=== PATIENT | male | born 1950 | race Caucasian/White ===

== ENCOUNTER 2018-07-15 16:26 | Emergency (ER) | payer MEDICARE, OTHER ==
[~2018-07-15] VITALS: Ht 180.3 cm; Wt 75.0 kg
[2018-07-15 16:44] VITALS: Ht 180.3 cm; Wt 75.0 kg
[2018-07-15] MEDS ORDERED: HYDROCODONE/APAP (10/325) TAB PO ONE (17:00)
[2018-07-15] MEDS ORDERED: OLANZAPINE (ODT) 5 MG TAB ODT ONE (17:00)
[2018-07-15 18:11] VITALS: BP 137/88; PULSE 79; RESP 18
--- NOTE | 2018-07-15 18:34 | ERD ---
ER Documentation Chief Complaint Chief Complaint right hip pain x 3 years HPI Patient is a 67-year-old male with a history of chronic knee pain who presents with right-sided hip and knee pain. The patient was brought in by ambulance. He has had a hip replacement 8 weeks ago and says that he has had right knee pain for the past 3 years. He said that he ran out of his pain meds yesterday. He was also "kicked out of the facility yesterday". Upon review of old medical records this is the patient's first visit to [facility] but review of the emergency department information exchange system shows visits to 4 separate emergency departments for a total of 9 visits over the past 12 months. He does have a primary doctor but does not remember the name of the orthopedic surgeon. ROS All systems reviewed and are negative except as per history of present illness. Medications Home Meds Unable to Obtain Active Prescriptions or Reported Meds Allergies Allergies: Coded Allergies: No Known Allergy (Unverified , 07/15/18) PMhx/Soc History of Surgery: Yes (rt hip . rt knee ) Anesthesia Reaction: No Hx Neurological Disorder: No Hx Respiratory Disorders: No Hx Cardiac Disorders: No Hx Psychiatric Problems: Yes (anxiety ) Hx Miscellaneous Medical Probl: Yes (chronic knee and hip pain ) Hx Alcohol Use: Yes Hx Substance Use: No Hx Tobacco Use: No Smoking Status: Former smoker FmHx Family History: No diabetes Physical Exam Vitals Vital Signs Date Temp Pulse Resp B/P (MAP) Pulse Ox O2 O2 Flow FiO2 Time Delivery Rate 07/15/18 98.1 66 18 140/83 97 16:44 (102) Physical Exam Const: Anxious Head: Atraumatic Eyes: Normal Conjunctiva ENT: Normal External Ears, Nose and Mouth. Neck: Full range of motion. No meningismus. Resp: Clear to auscultation bilaterally Cardio: Regular rate and rhythm, no murmurs Abd: Soft, non tender, non distended. Normal bowel sounds Skin: No petechiae or rashes Back: No midline or flank tenderness Ext: Knee pain and right hip pain with age of motion but no shortening or deformity noted Neur: Awake and alert Psych: Tearful and anxious Results 24 hrs Current Medications Medications Dose Sig/Fili Start Time Status Last (Trade) Ordered Route PRN Stop Time Admin Dose Reason Admin 1 tab ONCE ONCE 07/15/18 DC 07/15/18 Acetaminophen PO 17:00 07/15/18 16:45 / 17:01 Hydrocodone Bitart (Yantis ()) Olanzapine 5 mg ONCE ONCE 07/15/18 DC 07/15/18 (Zyprexa ODT 17:00 07/15/18 17:01 Zydis) 17:01 Procedures/MDM Patient refused right hip and right knee x-rays. Patient is a 67-year-old male presents with acute on chronic hip and knee pain. The patient was given Yantis for pain. His biggest issue is a social one as he supposedly left AMA from [facility] yesterday. We called the facility and this is what they told us. We are attempting to find placement and have contacted social work. The patient has been offered transportation to a friend's house as well. We will attempt to find a place for him and then will be discharged. Departure Diagnosis: Primary Impression: Chronic pain Chronic pain type: chronic pain syndrome Qualified Codes: G89.4 - Chronic pain syndrome Additional Impression: Hip pain Laterality: right Qualified Codes: M25.551 - Pain in right hip Condition: Fair Patient Instructions: Chronic Pain Referrals: [facility]YCHIATRIC HOSPITAL CLINICS YOU HAVE RECEIVED A MEDICAL SCREENING EXAM AND THE RESULTS INDICATE THAT YOU DO NOT HAVE A CONDITION THAT REQUIRES URGENT TREATMENT IN THE EMERGENCY DEPARTMENT. FURTHER EVALUATION AND TREATMENT OF YOUR CONDITION CAN WAIT UNTIL YOU ARE SEEN IN YOUR DOCTORS OFFICE WITHIN THE NEXT 1-2 DAYS. IT IS YOUR RESPONSIBILITY TO MAKE AN APPOINTMENT FOR FOLOW-UP CARE. IF YOU HAVE A PRIMARY DOCTOR --you should call your primary doctor and schedule an appointment IF YOU DO NOT HAVE A PRIMARY DOCTOR YOU CAN CALL OUR PHYSICIAN REFERRAL HOTLINE AT IF YOU CAN NOT AFFORD TO SEE A PHYSICIAN YOU CAN CHOSE FROM THE FOLLOWING PSYCHIATRIC HOSPITAL CLINICS [facility] [address] [facility]. [facility] [address] [facility]. [facility] [address] [facility] [facility] [address] [facility]. [facility] [address] [facility]. [facility]. [address] Additional Instructions: Call your primary care doctor TOMORROW for an appointment during the next 1 WEEK.Tell the or assistant that you were referred from this facility.See the doctor sooner or return here if your condition worsens before your appointment time. RED REY MD July 15, 2018 18:34
== END 2018-07-16 10:21 | disposition home or self-care (01) ==
LOC: E/R 16:26
DX: M25.551 Pain in right hip (principal); R40.2142 Coma scale, eyes open, spontaneous, at arrival to emergency department; R40.2362 Coma scale, best motor response, obeys commands, at arrival to emergency department; R40.2252 Coma scale, best verbal response, oriented, at arrival to emergency department; Z87.891 Personal history of nicotine dependence; Z96.641 Presence of right artificial hip joint
CPT/HCPCS: 99283

== ENCOUNTER 2018-07-16 10:21 | Inpatient (IN) | payer MEDICARE, OTHER ==
[~2018-07-16] VITALS: Ht 193 cm; Wt 113.6 kg
[2018-07-16 10:46] VITALS: Ht 193 cm; Wt 113.6 kg
--- NOTE | 2018-07-16 12:49 | ERD ---
ER Documentation Chief Complaint Chief Complaint c/o right hip and knee pain. Needs placement. Homeless HPI This is a 67-year-old male who was discharged recently from the hospital after being evaluated for right hip and knee pain. The patient had a right femur ORIF and right total knee arthroplasty performed recently and was in a rehab facility. Unfortunately, the patient had a pet dog that needed to be attended to and he was unable to keep the dog at the facility. He subsequently left AGAINST MEDICAL ADVICE from the facility. He was able to get his friend to watch the dog, and came to the emergency department yesterday for placement. Unfortunately, the patient refused any transfer to a rehab facility that would not allow him to have a dog. The patient was discharged at that time as he did not want to stay. Unfortunately, the patient was not able to leave our facility as he could not ambulate. The patient returns today seeking placement. He is amenable to going to a rehab facility without his dog. The patient continues to endorse right hip and knee pain. This is chronic and unchanged since his surgery. The patient denies feeling sick recently. The patient denies fever or chills. The patient has had no headache or vision changes. The patient does not endorse neck or back pain. The patient denies lightheadedness or dizziness. The patient has had no chest pain or trouble breathing. The patient denies nausea or vomiting. The patient denies abdominal pain. The patient denies changes to bowel movements or urination. The patient has had no focal deficits. The patient has had no weakness or numbness or tingling to the face or extremities. ROS All systems reviewed and are negative except as per history of present illness. Medications Home Meds Unable to Obtain Active Prescriptions or Reported Meds Allergies Allergies: Coded Allergies: No Known Allergy (Unverified , 07/16/18) PMhx/Soc History of Surgery: Yes (rt hip . rt knee ) Anesthesia Reaction: No Hx Neurological Disorder: No Hx Respiratory Disorders: No Hx Cardiac Disorders: No Hx Psychiatric Problems: Yes (anxiety ) Hx Miscellaneous Medical Probl: Yes (chronic knee and hip pain ) Hx Alcohol Use: Yes Hx Substance Use: No Hx Tobacco Use: No Smoking Status: Never smoker FmHx Family History: No diabetes Physical Exam Vitals Vital Signs Date Temp Pulse Resp B/P (MAP) Pulse Ox O2 O2 Flow FiO2 Time Delivery Rate 07/16/18 98.2 71 20 135/92 100 10:46 (106) Physical Exam Const: No acute distress Head: Atraumatic Eyes: Normal Conjunctiva ENT: Normal External Ears, Nose and Mouth. Neck: Full range of motion. No meningismus. Resp: Clear to auscultation bilaterally Cardio: Regular rate and rhythm, no murmurs Abd: Soft, non tender, non distended. Normal bowel sounds Skin: No petechiae or rashes Back: No midline or flank tenderness Ext: No cyanosis, or edema. Limited range of motion to the right hip and knee secondary to pain. No erythema or induration or purulence or fluctuance to the leg. Neur: Awake and alert Psych: Normal Mood and Affect Result Diagram: 07/16/18 1104 07/16/18 1104 Results 24 hrs Laboratory Tests Test 07/16/18 11:04 White Blood Count 5.3 10^3/ul Red Blood Count 4.42 10^6/ul Hemoglobin 12.0 g/dl Hematocrit 36.4 % Mean Corpuscular Volume 82.4 fl Mean Corpuscular Hemoglobin 27.1 pg Mean Corpuscular Hemoglobin Concent 33.0 g/dl Red Cell Distribution Width 14.7 % Platelet Count 191 10^3/UL Mean Platelet Volume 8.9 fl Immature Granulocytes % 0.200 % Neutrophils % 61.4 % Lymphocytes % 22.8 % Monocytes % 12.2 % Eosinophils % 2.8 % Basophils % 0.6 % Nucleated Red Blood Cells % 0.0 /100WBC Immature Granulocytes # 0.010 10^3/ul Neutrophils # 3.3 10^3/ul Lymphocytes # 1.2 10^3/ul Monocytes # 0.7 10^3/ul Eosinophils # 0.2 10^3/ul Basophils # 0.0 10^3/ul Nucleated Red Blood Cells # 0.0 10^3/ul Sodium Level 142 mmol/L Potassium Level 3.8 mmol/L Chloride Level 107 mmol/L Carbon Dioxide Level 24 mmol/L Anion Gap 11 Blood Urea Nitrogen 13 mg/dl Creatinine 0.65 mg/dl Est Glomerular Filtrat Rate mL/min > 60 mL/min Glucose Level 117 mg/dl Calcium Level 9.8 mg/dl Current Medications Medications Dose Sig/Fili Start Time Status Last (Trade) Ordered Route PRN Stop Time Admin Dose Reason Admin 1 tab ONCE ONCE 07/16/18 07/16/18 Acetaminophen PO 15:00 07/16/18 14:37 / 15:01 Hydrocodone Bitart ([place] (5/325)) Procedures/MDM MDM The patient's presentation warrants further investigation. Previous medical records, if available, were reviewed. LABS The patient's laboratory testing was obtained and reviewed. No emergent treat ment was required unless described below. CBC: No E/o systemic infection or severe anemia or thrombocytopenia. Mild normocytic anemia, not emergent. Chemistry: No E/o severe acidosis or alkalosis or renal failure or diabetic ketoacidosis IMAGING Imaging and Radiology interpretation reviewed. CXR FINDINGS: The patient is again noted to be status post placement of a right hip screw, right femoral intramedullary nail, and right knee arthroplasty. No acute fracture or dislocation is identified. Bony mineralization is normal. Atherosclerotic calcifications are noted. IMPRESSION: 1. No evidence of acute fracture or dislocation. 2. Status post right femoral ORIF and right knee arthroplasty. 3. Atherosclerotic calcifications. Electronically viewed and signed by .Trent Olsen MD, on 07/16/2018 11:27 TREATMENT/DISPOSITION The patient presents again for ambulatory dysfunction. The patient had a recent right femoral ORIF and total right knee arthroplasty. He still requires rehabilitation, but he left his rehab center AGAINST MEDICAL ADVICE due to the need to care for his dog. The patient reports that he has found a place for his dog to remain for now while he is in rehab. However, the patient's rehab facility is no longer able to accept him. Social work was consulted to evaluate the patient. They are not able to get the patient to an alternative rehab facility from the emergency department. I do feel the patient requires admission as I do not feel the patient is safe to be discharged on his own at this time. The patient will require PT and OT evaluations and will likely require further rehabilitation care. When speaking with the hospitalist team, they do not feel that it would be appropriate to admit the patient as this is a placement issue. We will have the social research assistant and caser to reevaluate the patient in an attempt to place the patient from the emergency department. The patient was signed out to the oncoming physician at 3 PM on July 16, 2018. Disclaimer: Inadvertent spelling and grammatical errors are likely due to EHR/dictation software use and do not reflect on the overall quality of patient care. Note that the electronic time recorded on this note does not necessarily reflect the actual time of the patient encounter. Departure Diagnosis: Primary Impression: Ambulatory dysfunction Additional Impressions: Status post total right knee replacement Normocytic anemia Condition: Fair Patient Instructions: Anemia, Knee Pain, Uncertain Cause MAT HOLLAND MD July 16, 2018 12:49
[2018-07-16] MEDS ORDERED: HYDROCODONE/APAP (5/325) TAB PO ONE (15:00)
[2018-07-16] MEDS ORDERED: ACETAMINOPHEN 325 MG TAB PO PRN (17:00)
[2018-07-16] MEDS ORDERED: ONDANSETRON 4 MG INJ IV PRN ×2 (17:00→17:30)
[2018-07-16] MEDS ORDERED: NACL 0.9% 3 ML SYG IV SCH (17:30)
--- NOTE | 2018-07-16 17:40 | HP ---
Date/Time of Note Date/Time of Note DATE: 07/16/18 TIME: 17:28 Assessment/Plan VTE Prophylaxis SCD applied (from Ns): Yes Pharmacological prophylaxis: apixaban Assessment/Plan Assessment/Plan 67 yo man history of DVT, chronic R hip and knee pain presents for placement #Homeless - Kicked out of SNF for having dog - SW consult #R hip postoperative pain - Percocet, ibuprofen. - PT evaluation. #R popliteal DVT - Cont eliqius #Depression/Anxiety - Patient on Prozac and Ativan previously. Will try to verify dose. Result Diagram: 07/16/18 1104 07/16/18 1104 HPI/ROS Admit Date/Time Admit Date/Time July 16, 2018 Hx of Present Illness Mr. Nogueira is a 67 yo man with chronic R hip and knee pain related to surgery who presents for placement after losing his SNF. The patient had a right femur ORIF about 7-8 weeks ago and a more remote right total knee arthroplasty and was in a rehab facility. Unfortunately, the patient had a pet dog that needed to be attended to and he was unable to keep the dog at the facility. He subsequently left AGAINST MEDICAL ADVICE from the facility. He was able to get his friend to watch the dog, and came to the emergency department Tuesday for placement. Unfortunately, the patient refused any transfer to a rehab facility that would not allow him to have a dog. The patient continues to endorse right hip and knee pain. This is chronic and unchanged since his surgery. The patient denies feeling sick recently. The patient denies fever or chills. The patient has had no headache or vision changes. The patient does not endorse neck or back pain. The patient denies lightheadedness or dizziness. The patient has had no chest pain or trouble breathing. The patient denies nausea or vomiting. The patient denies abdominal pain. The patient denies changes to bowel movements or urination. The patient has had no focal deficits. The patient has had no weakness or numbness or tingling to the face or extremities. MEDICATIONS Eliquis Ativan Prozac Percocet PMH/Family/Social Past Medical History R popliteal DVT, currently on Eliquis Depression, anxiety Medications Current Medications Ondansetron HCl (Zofran Inj) 4 mg BRIDGE ORDER PRN IV NAUSEA/VOMITING; Start 07/16/18 at 17:00; Stop 07/17/18 at 16:59 Acetaminophen (Tylenol Tab) 650 mg ER BRIDGE PRN PO .MILD PAIN 1-3 OR TEMP; Start 07/16/18 at 17:00; Stop 07/17/18 at 16:59 Coded Allergies: No Known Allergy (Unverified , 07/16/18) Past Surgical History R hip arthroplasty 7-8 weeks ago R knee surgery x3 including arthroplasty. R rotator cuff surgery L elbow surgery Lumbar laminectomy Social History Has two daughters, estranged. Alcohol Use: occasionally Smoking Status: Former smoker (quit 10 years ago) Drug Use: none Exam/Review of Systems Vital Signs Vitals Vital Signs Date Temp Pulse Resp B/P (MAP) Pulse Ox O2 O2 Flow FiO2 Time Delivery Rate 07/16/18 98.2 71 20 135/92 100 10:46 (106) Exam Exam Gen: Melancholy appearing elderly man supine in bed, no acute distress. Eyes: PERRL, no icterus HEENT: Adentulous, moist mucous membranes, clear oropharynx Neck: No JVD, no lymphadenopathy Chest: Early right-sided gynecomastia and breast tenderness. Card: Regular rate and rhythm, no murmurs Pulm: Clear to auscultation bilaterally Back: No CVA tenderness, no midline tenderness, no surgical scars. Abd: Soft, nontender, nondistended. Ext: R hip and knee well-healed surgical scars. R hip has greatly reduced range of motion limited by pain. ZINA SAUL MD July 16, 2018 17:39
[2018-07-16] MEDS: OXYCODONE/ACETAMINOPHEN (5/325) TAB PO PRN (17:44)
[2018-07-16] MEDS ORDERED: IBUPROFEN 800 MG TAB PO ONE (18:00)
[2018-07-16 19:22] VITALS: BP 158/83; PULSE 63; RESP 18
[2018-07-16] MEDS: APIXABAN 5 MG TABLET PO SCH (20:21)
[2018-07-17 02:00] VITALS: BP 110/64; PULSE 67; RESP 16
[2018-07-17 07:39] VITALS: BP 140/80; PULSE 68; RESP 18
[2018-07-17] MEDS: OXYCODONE/ACETAMINOPHEN (5/325) TAB PO PRN ×3 (07:42→20:36)
[2018-07-17] MEDS: APIXABAN 5 MG TABLET PO SCH ×2 (08:37→20:36)
[2018-07-17] MEDS ORDERED: POTASSIUM CHLORIDE (SR) 20 MEQ TAB PO STA (10:51)
[2018-07-17 14:15] VITALS: BP 127/67; PULSE 67; RESP 18
--- NOTE | 2018-07-17 16:02 | PN ---
Date/Time of Note Date/Time of Note DATE: 07/17/18 TIME: 15:57 Assessment/Plan VTE Prophylaxis Risk score (from Ns)>0 risk: 9 SCD applied (from Ns): No SCD contraindicated: other Pharmacological prophylaxis: apixaban Lines/Catheters IV Catheter Type [facility]from [facility]): Saline Lock Urinary Cath still in place: No Assessment/Plan Hospital Course S: Patient had some diarrhea this morning, C. difficile test and results are pending. Work with physical therapy as well. O: VS- see below PE: Gen: Melancholy appearing elderly man supine in bed, no acute distress. HEENT: PERRL, no icterus Neck: Supple Chest: Early right-sided gynecomastia and breast tenderness. Card: Regular rate and rhythm, no murmurs Pulm: Clear to auscultation bilaterally Back: No CVA tenderness, no midline tenderness, no surgical scars. Abd: Soft, nontender, nondistended. Ext: R hip and knee well-healed surgical scars. R hip has greatly reduced range of motion limited by pain. Assessment/Plan: 67 yo man history of DVT, chronic R hip and knee pain presents for placement. #Homeless-apparently patient was kicked out of SNF for having dog -life enrichment manager and SW consult obtained, they are trying to look for new SNF placement at this time -follow-up with them on this #R hip postoperative pain-slowly improving - Percocet, ibuprofen. - Continue inpatient PT #R popliteal DVT - Cont eliqius #Depression/Anxiety- Patient on Prozac and Ativan previously. - Will try to verify dose of these home meds - In the meantime Ativan as needed Result Diagram: 07/17/18 0545 07/17/18 0545 Results 24hrs Laboratory Tests Test 07/17/18 05:45 White Blood Count 5.8 Red Blood Count 4.16 L Hemoglobin 11.3 L Hematocrit 34.8 L Mean Corpuscular Volume 83.7 Mean Corpuscular Hemoglobin 27.2 L Mean Corpuscular Hemoglobin Concent 32.5 Red Cell Distribution Width 14.8 H Platelet Count 175 Mean Platelet Volume 9.3 Immature Granulocytes % 0.300 Neutrophils % 56.7 Lymphocytes % 27.3 Monocytes % 11.9 H Eosinophils % 3.3 Basophils % 0.5 Nucleated Red Blood Cells % 0.0 Immature Granulocytes # 0.020 Neutrophils # 3.3 Lymphocytes # 1.6 Monocytes # 0.7 Eosinophils # 0.2 Basophils # 0.0 Nucleated Red Blood Cells # 0.0 Sodium Level 143 Potassium Level 3.4 L Chloride Level 105 Carbon Dioxide Level 26 Anion Gap 12 Blood Urea Nitrogen 16 Creatinine 0.75 Est Glomerular Filtrat Rate mL/min > 60 Glucose Level 107 Hemoglobin A1c 5.3 Calcium Level 9.3 Phosphorus Level 4.1 Magnesium Level 1.9 Total Bilirubin 0.5 Direct Bilirubin 0.00 Indirect Bilirubin 0.5 Aspartate Amino Transf (AST/SGOT) 20 Alanine Aminotransferase (ALT/SGPT) 23 Alkaline Phosphatase 96 Total Protein 6.7 Albumin 3.8 Globulin 2.90 Albumin/Globulin Ratio 1.31 Thyroid Stimulating Hormone (TSH) 2.150 Exam/Review of Systems Exam Vitals Vital Signs Date Temp Pulse Resp B/P (MAP) Pulse Ox O2 O2 Flow FiO2 Time Delivery Rate 07/17/18 98.2 67 18 127/67 98 Room Air 14:15 (87) Results Results 24hrs Laboratory Tests Test 07/17/18 05:45 White Blood Count 5.8 Red Blood Count 4.16 L Hemoglobin 11.3 L Hematocrit 34.8 L Mean Corpuscular Volume 83.7 Mean Corpuscular Hemoglobin 27.2 L Mean Corpuscular Hemoglobin Concent 32.5 Red Cell Distribution Width 14.8 H Platelet Count 175 Mean Platelet Volume 9.3 Immature Granulocytes % 0.300 Neutrophils % 56.7 Lymphocytes % 27.3 Monocytes % 11.9 H Eosinophils % 3.3 Basophils % 0.5 Nucleated Red Blood Cells % 0.0 Immature Granulocytes # 0.020 Neutrophils # 3.3 Lymphocytes # 1.6 Monocytes # 0.7 Eosinophils # 0.2 Basophils # 0.0 Nucleated Red Blood Cells # 0.0 Sodium Level 143 Potassium Level 3.4 L Chloride Level 105 Carbon Dioxide Level 26 Anion Gap 12 Blood Urea Nitrogen 16 Creatinine 0.75 Est Glomerular Filtrat Rate mL/min > 60 Glucose Level 107 Hemoglobin A1c 5.3 Calcium Level 9.3 Phosphorus Level 4.1 Magnesium Level 1.9 Total Bilirubin 0.5 Direct Bilirubin 0.00 Indirect Bilirubin 0.5 Aspartate Amino Transf (AST/SGOT) 20 Alanine Aminotransferase (ALT/SGPT) 23 Alkaline Phosphatase 96 Total Protein 6.7 Albumin 3.8 Globulin 2.90 Albumin/Globulin Ratio 1.31 Thyroid Stimulating Hormone (TSH) 2.150 Medications Medication Current Medications Ondansetron HCl (Zofran Inj) 4 mg BRIDGE ORDER PRN IV NAUSEA/VOMITING; Start 07/16/18 at 17:00; Stop 07/17/18 at 16:59 Acetaminophen (Tylenol Tab) 650 mg ER BRIDGE PRN PO .MILD PAIN 1-3 OR TEMP; Start 07/16/18 at 17:00; Stop 07/17/18 at 16:59 IV Flush (NS 3 ml) 3 ml PER PROTOCOL IV ; Start 07/16/18 at 17:30 Ondansetron HCl (Zofran Inj) 4 mg Q6H PRN IV NAUSEA/VOMITING; Start 07/16/18 at 17:30 Acetaminophen (Tylenol Tab) 650 mg Q6H PRN PO .PAIN 1-3 OR TEMP; Start 07/16/18 at 17:30 Oxycodone/ Acetaminophen (Percocet (5/ 325)) 1 tab Q6H PRN PO .MOD PAIN 4-6 Last administered on 07/17/18at 13:48; Admin Dose 1 TAB; Start 07/16/18 at 17:30 Apixaban (Eliquis) 5 mg BID PO Last administered on 07/17/18at 08:37; Admin Dose 5 MG; Start 07/16/18 at 21:00 HANS COTA July 17, 2018 16:02
[2018-07-17] MEDS: LORAZEPAM 2 MG INJ IV PRN (17:54)
[2018-07-17 19:25] VITALS: BP 142/80; PULSE 57; RESP 18
[2018-07-18] MEDS: LORAZEPAM 2 MG INJ IV PRN ×2 (00:18→07:35)
[2018-07-18 02:48] VITALS: BP 138/66; PULSE 60; RESP 18
[2018-07-18 07:48] VITALS: BP 138/70; PULSE 58; RESP 17
[2018-07-18] MEDS: APIXABAN 5 MG TABLET PO SCH ×2 (09:13→20:28)
--- NOTE | 2018-07-18 11:22 | PDOCDIS ---
Discharge Instructions CONDITION [id number] Patient Condition: [id number] Stable HANS COTA July 18, 2018 11:22
--- NOTE | 2018-07-18 11:26 | DS ---
Date/Time of Note Date/Time of Note DATE: 07/18/18 TIME: 11:23 Discharge Summary Admission/Discharge Info Admit Date/Time July 16, 2018 at 16:50 Discharge Date/Time Discharge Diagnosis #Homeless-apparently patient was kicked out of prior SNF for having dog -Case m igor and long term care social worker discussed this issue with patient on this admission #R hip postoperative pain-slowly improving #R popliteal DVT - on eliqius #Depression/Anxiety- Patient on Prozac and Ativan previously. Patient Condition: Stable Procedures Right hip x-ray: IMPRESSION: 1. No evidence of acute fracture or dislocation. 2. Status post right femoral ORIF and right knee arthroplasty. 3. Atherosclerotic calcifications. Hx of Present Illness 67 yo man with chronic R hip and knee pain related to surgery who presents for placement after losing his SNF. The patient had a right femur ORIF about 7-8 weeks ago and a more remote right total knee arthroplasty and was in a rehab facility. Unfortunately, the patient had a pet dog that needed to be attended to and he was unable to keep the dog at the facility. He subsequently left AGAINST MEDICAL ADVICE from the facility. He was able to get his friend to watch the dog, and came to the emergency department Tuesday for placement. Unfortunately, the patient refused any transfer to a rehab facility that would not allow him to have a dog. The patient continues to endorse right hip and knee pain. This is chronic and unchanged since his surgery. The patient denies feeling sick recently. The patient denies fever or chills. The patient has had no headache or vision changes. The patient does not endorse neck or back pain. The patient denies lightheadedness or dizziness. The patient has had no chest pain or trouble breathing. The patient denies nausea or vomiting. The patient denies abdominal pain. The patient denies changes to bowel movements or urination. The patient has had no focal deficits. The patient has had no weakness or numbness or tingling to the face or extremities. Hospital Course Patient was admitted to medical surgical unit and seen by physical therapy during this hospital stay. He received appropriate pain medications to help control his hip pain. X-rays were performed of his hip that did not show any acute findings. Patient improved with physical therapy. Vital signs are stable. He was able to ambulate with assistance, tolerated p.o. diet. He continued Eliquis for his history of DVT. Case management appears to have found a place, new SNF facility for placement today, once that is confirmed he will be discharged there later today in improved condition. See printed medicine reconciliation sheet for full list of discharge medications. Home Meds Unable to Obtain Active Prescriptions or Reported Meds Primary Care Provider Not On Staff Doctor Time spent on discharge: > 30 minutes HANS COTA July 18, 2018 11:26
[2018-07-18] MEDS: LORAZEPAM 1 MG TAB PO PRN ×2 (12:59→19:04)
[2018-07-18] MEDS: OXYCODONE/ACETAMINOPHEN (5/325) TAB PO PRN ×2 (12:59→19:04)
[2018-07-18 14:07] VITALS: BP 121/75; PULSE 69; RESP 18
[2018-07-18 19:15] VITALS: BP 121/71; PULSE 67; RESP 19
[2018-07-18] MEDS ORDERED: LORAZEPAM 2 MG INJ IV ONE (20:30)
[2018-07-18] MEDS ORDERED: HALOPERIDOL 5 MG INJ IM ONE (20:30)
[2018-07-18] MEDS ORDERED: ASPIRIN 325 MG TAB PO ONE (22:00)
[2018-07-19] MEDS: OXYCODONE/ACETAMINOPHEN (5/325) TAB PO PRN ×3 (01:31→12:59)
[2018-07-19] MEDS: LORAZEPAM 1 MG TAB PO PRN ×4 (01:48→18:13)
[2018-07-19 02:00] VITALS: BP 134/67; PULSE 55; RESP 20
[2018-07-19 08:00] VITALS: BP 147/72; PULSE 58; RESP 18
[2018-07-19] MEDS: APIXABAN 5 MG TABLET PO SCH ×2 (08:51→21:02)
--- NOTE | 2018-07-19 10:19 | DS ---
Date/Time of Note Date/Time of Note DATE: 07/19/18 TIME: 10:18 Discharge Summary Admission/Discharge Info Admit Date/Time July 16, 2018 at 16:50 Discharge Date/Time Discharge Diagnosis #Homeless-apparently patient was kicked out of prior SNF for having dog -Case m igor and addiction social worker discussed this issue with patient on this admission #R hip postoperative pain-slowly improving #R popliteal DVT - on eliqius #Depression/Anxiety- Patient on Prozac and Ativan previously. Patient Condition: Stable Hx of Present Illness 67 yo man with chronic R hip and knee pain related to surgery who presents for placement after losing his SNF. The patient had a right femur ORIF about 7-8 weeks ago and a more remote right total knee arthroplasty and was in a rehab facility. Unfortunately, the patient had a pet dog that needed to be attended to and he was unable to keep the dog at the facility. He subsequently left AGAINST MEDICAL ADVICE from the facility. He was able to get his friend to watch the dog, and came to the emergency department Tuesday for placement. Unfortunately, the patient refused any transfer to a rehab facility that would not allow him to have a dog. The patient continues to endorse right hip and knee pain. This is chronic and unchanged since his surgery. The patient denies feeling sick recently. The patient denies fever or chills. The patient has had no headache or vision changes. The patient does not endorse neck or back pain. The patient denies lightheadedness or dizziness. The patient has had no chest pain or trouble breathing. The patient denies nausea or vomiting. The patient denies abdominal pain. The patient denies changes to bowel movements or urination. The patient has had no focal deficits. The patient has had no weakness or numbness or tingling to the face or extremities. Hospital Course Patient was admitted to medical surgical unit and seen by physical therapy during this hospital stay. He received appropriate pain medications to help control his hip pain. X-rays were performed of his hip that did not show any acute findings. Patient improved with physical therapy. Vital signs are stable. He was able to ambulate with assistance, tolerated p.o. diet. He continued Eliquis for his history of DVT. Case management working on SNF facility for placement today, once that is confirmed he will be discharged there later today in improved condition. See printed medicine reconciliation sheet for full list of discharge medications. Home Meds Unable to Obtain Active Prescriptions or Reported Meds Primary Care Provider Not On Staff Doctor Time spent on discharge: > 30 minutes HANS COTA July 19, 2018 10:19
[2018-07-19 14:00] VITALS: BP 92/62; PULSE 71; RESP 18
--- NOTE | 2018-07-19 15:42 | PSY ---
Date/Time of Note Date/Time of Note DATE: 07/19/18 TIME: 15:35 Psychiatric Subjective Eval Consent Pt consented to telemedicine: No Subjective Evaluation Patient location: inpatient Chief Complaint: c/o right hip and knee pain. Needs placement. Homeless History of present illness The patient is a 67 yr old male with history of DVT, chronic R hip, admitted for knee pain. On a [id number] evaluation, patient is increasingly anxious reports feeling hopeless and depressed, patient is tearful states he still has memories of the of his baby from his first . He states he stopped his Prozac a few months ago because he could no longer afford it and there was no prescription for him. Discussed risk and benefits of Prozac BuSpar and patient verbalized understanding and willing to take those medications Past psychiatric history Long history of depression and anxiety Hospitalization: other Medical history Problems Medical Problems: (1) Ambulatory dysfunction Status: Acute (2) Chronic pain Status: Acute (3) Hip pain Status: Acute (4) Normocytic anemia Status: Acute Allergies: Coded Allergies: No Known Allergy (Unverified , 07/16/18) Substance Abuse Substance abuse history: No Prior substance abuse treatmen: No Social History Marital status: DPA/Conservatorship: No Psychiatric Objective Eval Review of Systems: Review of Systems: Not Applicable Physical Examination: Physical Examination: Not Applicable Mental Status Examination: Appearance: Disheveled Eye Contact: Poor Psychomotor Activity: Slow Behavior: Cooperative Speech: Soft AFFECT: Flat Mood: Depressed, Anxious Though Process: Linear Thought Content: Normal Orientation: x4 Cognition: Alert Insight: Mild Judgement: Mild Attention Span: Distractible Assessment and Plan Assessment/Diagnosis Diagnosis Major depressive disorder severe recurrent without psychosis Recommendation/Plan Medication Management Prozac 20 mg daily, BuSpar 5 mg twice a day, and continue on Ativan as ordered Multiple antipsychotics: No Psychotherapy Provide supportive therapy Discharge Disposition: Other Legal Status: Voluntary (Does not meet criteria for 5150 hold) ANDREINA SUNSHINE NP July 19, 2018 15:42
[2018-07-19 19:45] VITALS: BP 135/70; PULSE 70; RESP 19
[2018-07-19] MEDS: BUSPIRONE 5 MG TAB PO SCH (21:02)
[2018-07-20] MEDS: LORAZEPAM 1 MG TAB PO PRN ×4 (00:16→18:55)
[2018-07-20] MEDS: OXYCODONE/ACETAMINOPHEN (5/325) TAB PO PRN ×4 (00:16→18:55)
[2018-07-20 02:16] VITALS: BP 129/76; PULSE 72; RESP 20
[2018-07-20 07:33] VITALS: BP 126/65; PULSE 58; RESP 18
[2018-07-20] MEDS: FLUOXETINE 20 MG CAP PO SCH (08:08)
[2018-07-20] MEDS: BUSPIRONE 5 MG TAB PO SCH ×2 (08:08→20:05)
[2018-07-20] MEDS: APIXABAN 5 MG TABLET PO SCH ×2 (08:08→20:05)
--- NOTE | 2018-07-20 10:07 | PN ---
Date/Time of Note Date/Time of Note DATE: 07/20/18 TIME: 10:05 Assessment/Plan VTE Prophylaxis Risk score (from Nsg)>0 risk: 11 SCD applied (from Ns): No SCD contraindicated: other Pharmacological prophylaxis: apixaban Lines/Catheters IV Catheter Type (from Nrsg): Peripheral IV Urinary Cath still in place: No Assessment/Plan Hospital Course S: Patient still waiting for placement, no acute events overnight. O: VS- see below PE: Gen: Melancholy appearing elderly man supine in bed, no acute distress. HEENT: PERRL, no icterus Neck: Supple Chest: Early right-sided gynecomastia and breast tenderness. Card: Regular rate and rhythm, no murmurs Pulm: Clear to auscultation bilaterally Back: No CVA tenderness, no midline tenderness, no surgical scars. Abd: Soft, nontender, nondistended. Ext: R hip and knee well-healed surgical scars. R hip has greatly reduced range of motion limited by pain. Assessment/Plan: 67 yo man history of DVT, chronic R hip and knee pain presents for placement. #Homeless-apparently patient was kicked out of SNF for having dog -activity manager and SW consult obtained, they are trying to look for new SNF placement at this time -follow-up with them on this #R hip postoperative pain-slowly improving - Percocet, ibuprofen. - Continue inpatient PT #R popliteal DVT - Cont eliqius #Depression/Anxiety- Patient on Prozac and Ativan previously. - In the meantime Ativan as needed Dispo: to SNF when bed found, cleared for d/c there Result Diagram: 07/17/18 0545 07/17/18 0545 Exam/Review of Systems Exam Vitals Vital Signs Date Temp Pulse Resp B/P (MAP) Pulse Ox O2 O2 Flow FiO2 Time Delivery Rate 07/20/18 98.2 58 18 126/65 91 Room Air 07:33 (85) Intake and Output 07/19/18 07/19/18 07/20/18 1515:00 23:00 07:00 IntakeIntake Total 440 ml OutputOutput Total 900 ml 500 ml 400 ml BalanceBalance -460 ml -500 ml -400 ml Medications Medication Current Medications IV Flush (NS 3 ml) 3 ml PER PROTOCOL IV ; Start 07/16/18 at 17:30 Ondansetron HCl (Zofran Inj) 4 mg Q6H PRN IV NAUSEA/VOMITING; Start 07/16/18 at 17:30 Acetaminophen (Tylenol Tab) 650 mg Q6H PRN PO .PAIN 1-3 OR TEMP; Start 07/16/18 at 17:30 Oxycodone/ Acetaminophen (Percocet (5/ 325)) 1 tab Q6H PRN PO .MOD PAIN 4-6 Last administered on 07/20/18 06:49; Admin Dose 1 TAB; Start 07/16/18 at 17:30 Apixaban (Eliquis) 5 mg BID PO Last administered on 07/20/18 08:08; Admin Dose 5 MG; Start 07/16/18 at 21:00 Lorazepam (Ativan) 1 mg Q6H PRN IV AGITATION/ANXIETY Last administered on 07/18/18 07:35; Admin Dose 1 MG; Start 07/17/18 at 16:00 Lorazepam (Ativan) 1 mg Q6H PRN PO ANXIETY Last administered on 07/20/18 06:49; Admin Dose 1 MG; Start 07/18/18 at 12:30 Buspirone HCl (Buspar) 5 mg BID PO Last administered on 07/20/18 08:08; Admin Dose 5 MG; Start 07/19/18 at 21:00 Fluoxetine HCl (Prozac) 20 mg DAILY PO Last administered on 07/20/18 08:08; Admin Dose 20 MG; Start 07/20/18 at 09:00 HANS COTA July 20, 2018 10:07
[2018-07-20 13:33] VITALS: BP 131/83; PULSE 67; RESP 16
[2018-07-20 20:07] VITALS: BP 120/79; PULSE 63; RESP 18
[2018-07-21] MEDS: OXYCODONE/ACETAMINOPHEN (5/325) TAB PO PRN ×4 (00:58→19:14)
[2018-07-21] MEDS: LORAZEPAM 1 MG TAB PO PRN ×4 (00:58→20:05)
[2018-07-21 01:53] VITALS: BP 134/66; PULSE 66; RESP 18
[2018-07-21 08:00] VITALS: BP 105/72; PULSE 59; RESP 18
[2018-07-21] MEDS: FLUOXETINE 20 MG CAP PO SCH (09:04)
[2018-07-21] MEDS: BUSPIRONE 5 MG TAB PO SCH ×2 (09:04→20:05)
[2018-07-21] MEDS: APIXABAN 5 MG TABLET PO SCH ×2 (09:04→20:05)
--- NOTE | 2018-07-21 13:58 | PN ---
Date/Time of Note Date/Time of Note DATE: 07/21/18 TIME: 13:57 Assessment/Plan VTE Prophylaxis Risk score (from Nsg)>0 risk: 2 SCD applied (from Nsg): No SCD contraindicated: other Pharmacological prophylaxis: apixaban Lines/Catheters IV Catheter Type (from Nrsg): Peripheral IV Urinary Cath still in place: No Assessment/Plan Hospital Course S: Patient still waiting for placement, no acute events overnight. Seen by psychiatry team and presently on Prozac and BuSpar tolerating well. O: VS- see below PE: Gen: Melancholy appearing elderly man supine in bed, no acute distress. HEENT: PERRL, no icterus Neck: Supple Chest: Early right-sided gynecomastia and breast tenderness. Card: Regular rate and rhythm, no murmurs Pulm: Clear to auscultation bilaterally Back: No CVA tenderness, no midline tenderness, no surgical scars. Abd: Soft, nontender, nondistended. Ext: R hip and knee well-healed surgical scars. R hip has greatly reduced range of motion limited by pain. Assessment/Plan: 67 yo man history of DVT, chronic R hip and knee pain presents for placement. #Homeless-apparently patient was kicked out of SNF for having dog -manager shell and SW consult obtained, they are trying to look for new SNF placement at this time -follow-up with them on this #R hip postoperative pain-slowly improving - Percocet, ibuprofen. - Continue inpatient PT #R popliteal DVT - Cont eliqius #Depression/Anxiety- Patient on Prozac and Ativan previously. Appreciate psychiatry evaluation. -Continue BuSpar and Prozac medications. Also Ativan as needed. Dispo: to SNF when bed found, cleared for d/c there Result Diagram: 07/17/18 0545 07/17/18 0545 Exam/Review of Systems Exam Vitals Vital Signs Date Temp Pulse Resp B/P (MAP) Pulse Ox O2 O2 Flow FiO2 Time Delivery Rate 07/21/18 98.1 59 18 105/72 93 08:00 (83) 07/20/18 Room Air 13:33 Intake and Output 07/20/18 07/20/18 07/21/18 1515:00 23:00 07:00 IntakeIntake Total 1020 ml OutputOutput Total 1100 ml 525 ml BalanceBalance -80 ml -525 ml Medications Medication Current Medications IV Flush (NS 3 ml) 3 ml PER PROTOCOL IV ; Start 07/16/18 at 17:30 Ondansetron HCl (Zofran Inj) 4 mg Q6H PRN IV NAUSEA/VOMITING; Start 07/16/18 at 17:30 Acetaminophen (Tylenol Tab) 650 mg Q6H PRN PO .PAIN 1-3 OR TEMP; Start 07/16/18 at 17:30 Oxycodone/ Acetaminophen (Percocet (5/ 325)) 1 tab Q6H PRN PO .MOD PAIN 4-6 Last administered on 07/21/18 13:12; Admin Dose 1 TAB; Start 07/16/18 at 17:30 Apixaban (Eliquis) 5 mg BID PO Last administered on 07/21/18 09:04; Admin Dose 5 MG; Start 07/16/18 at 21:00 Lorazepam (Ativan) 1 mg Q6H PRN IV AGITATION/ANXIETY Last administered on 07/18/18at 07:35; Admin Dose 1 MG; Start 07/17/18 at 16:00 Lorazepam (Ativan) 1 mg Q6H PRN PO ANXIETY Last administered on 07/21/18 06:08; Admin Dose 1 MG; Start 07/18/18 at 12:30 Buspirone HCl (Buspar) 5 mg BID PO Last administered on 07/21/18 09:04; Admin Dose 5 MG; Start 07/19/18 at 21:00 Fluoxetine HCl (Prozac) 20 mg DAILY PO Last administered on 07/21/18 09:04; Admin Dose 20 MG; Start 07/20/18 at 09:00 HANS COTA July 21, 2018 13:58
[2018-07-21 14:00] VITALS: BP 121/71; PULSE 77; RESP 18
[2018-07-21 19:44] VITALS: BP 147/86; PULSE 78; RESP 18
[2018-07-22] MEDS: OXYCODONE/ACETAMINOPHEN (5/325) TAB PO PRN ×4 (01:09→22:21)
[2018-07-22 01:42] VITALS: BP 130/84; PULSE 63; RESP 19
[2018-07-22] MEDS: LORAZEPAM 1 MG TAB PO PRN ×4 (02:05→21:10)
[2018-07-22 07:24] VITALS: BP 105/51; PULSE 58; RESP 18
[2018-07-22] MEDS: FLUOXETINE 20 MG CAP PO SCH (08:36)
[2018-07-22] MEDS: BUSPIRONE 5 MG TAB PO SCH ×2 (08:36→21:10)
[2018-07-22] MEDS: APIXABAN 5 MG TABLET PO SCH ×2 (08:36→21:10)
--- NOTE | 2018-07-22 11:38 | PN ---
Date/Time of Note Date/Time of Note DATE: 07/22/18 TIME: 11:38 Assessment/Plan VTE Prophylaxis Risk score (from Nsg)>0 risk: 6 SCD applied (from Ns): No SCD contraindicated: other Pharmacological prophylaxis: apixaban Lines/Catheters IV Catheter Type (from Nrsg): Saline Lock Urinary Cath still in place: No Assessment/Plan Hospital Course S: Patient still waiting for placement, no acute events overnight. O: VS- see below PE: Gen: Melancholy appearing elderly man supine in bed, no acute distress. HEENT: PERRL, no icterus Neck: Supple Chest: Early right-sided gynecomastia and breast tenderness. Card: Regular rate and rhythm, no murmurs Pulm: Clear to auscultation bilaterally Back: No CVA tenderness, no midline tenderness, no surgical scars. Abd: Soft, nontender, nondistended. Ext: R hip and knee well-healed surgical scars. R hip has greatly reduced range of motion limited by pain. Assessment/Plan: 67 yo man history of DVT, chronic R hip and knee pain presents for placement. #Homeless-apparently patient was kicked out of SNF for having dog -manager market research and SW consult obtained, they are trying to look for new SNF placement at this time -follow-up with them on this #R hip postoperative pain-slowly improving - Percocet, ibuprofen. - Continue inpatient PT #R popliteal DVT - Cont eliqius #Depression/Anxiety- Patient on Prozac and Ativan previously. Appreciate psychiatry evaluation. -Continue BuSpar and Prozac medications. Also Ativan as needed. Dispo: to SNF when bed found, cleared for d/c there Exam/Review of Systems Exam Vitals Vital Signs Date Temp Pulse Resp B/P (MAP) Pulse Ox O2 O2 Flow FiO2 Time Delivery Rate 07/22/18 98.0 58 18 105/51 92 Room Air 07:24 (69) Intake and Output 07/21/18 07/21/18 07/22/18 1515:00 23:00 07:00 IntakeIntake Total 720 ml 480 ml OutputOutput Total 600 ml 600 ml 700 ml BalanceBalance 120 ml -120 ml -700 ml Medications Medication Current Medications IV Flush (NS 3 ml) 3 ml PER PROTOCOL IV ; Start 07/16/18 at 17:30 Ondansetron HCl (Zofran Inj) 4 mg Q6H PRN IV NAUSEA/VOMITING; Start 07/16/18 at 17:30 Acetaminophen (Tylenol Tab) 650 mg Q6H PRN PO .PAIN 1-3 OR TEMP; Start 07/16/18 at 17:30 Oxycodone/ Acetaminophen (Percocet (5/ 325)) 1 tab Q6H PRN PO .MOD PAIN 4-6 Last administered on 07/22/18 07:13; Admin Dose 1 TAB; Start 07/16/18 at 17:30 Apixaban (Eliquis) 5 mg BID PO Last administered on 07/22/18 08:36; Admin Dose 5 MG; Start 07/16/18 at 21:00 Lorazepam (Ativan) 1 mg Q6H PRN IV AGITATION/ANXIETY Last administered on 07/18/18 07:35; Admin Dose 1 MG; Start 07/17/18 at 16:00 Lorazepam (Ativan) 1 mg Q6H PRN PO ANXIETY Last administered on 07/22/18 08:36; Admin Dose 1 MG; Start 07/18/18 at 12:30 Buspirone HCl (Buspar) 5 mg BID PO Last administered on 07/22/18 08:36; Admin Dose 5 MG; Start 07/19/18 at 21:00 Fluoxetine HCl (Prozac) 20 mg DAILY PO Last administered on 07/22/18 08:36; Admin Dose 20 MG; Start 07/20/18 at 09:00 HANS COTA July 22, 2018 11:38
[2018-07-22 14:00] VITALS: BP 112/73; PULSE 65; RESP 18
[2018-07-22 19:57] VITALS: BP 137/65; PULSE 64; RESP 18
[2018-07-23 02:17] VITALS: BP 121/71; PULSE 80; RESP 18
[2018-07-23] MEDS: LORAZEPAM 1 MG TAB PO PRN (04:33)
[2018-07-23 07:18] VITALS: BP 126/60; PULSE 64; RESP 18
[2018-07-23] MEDS: APIXABAN 5 MG TABLET PO SCH ×2 (08:36→21:11)
[2018-07-23] MEDS: FLUOXETINE 20 MG CAP PO SCH (08:36)
[2018-07-23] MEDS: BUSPIRONE 5 MG TAB PO SCH ×2 (08:36→21:11)
[2018-07-23] MEDS: OXYCODONE/ACETAMINOPHEN (5/325) TAB PO PRN ×3 (08:36→22:00)
--- NOTE | 2018-07-23 12:53 | PN ---
Date/Time of Note Date/Time of Note DATE: 07/23/18 TIME: 12:52 Assessment/Plan VTE Prophylaxis Risk score (from Nsg)>0 risk: 6 SCD applied (from Nsg): No SCD contraindicated: other Pharmacological prophylaxis: apixaban Lines/Catheters IV Catheter Type (from Nrsg): Saline Lock Urinary Cath still in place: No Assessment/Plan Hospital Course S: Patient worked with PT yesterday. No acute events overnight. Still waiting for placement. O: VS- see below PE: Gen: Lying in bed eating cookies, no acute distress. HEENT: PERRL, no icterus Neck: Supple Chest: Early right-sided gynecomastia and breast tenderness. Card: Regular rate and rhythm, no murmurs Pulm: Clear to auscultation bilaterally Back: No CVA tenderness, no midline tenderness, no surgical scars. Abd: Soft, nontender, nondistended. Ext: R hip and knee well-healed surgical scars. R hip has greatly reduced range of motion limited by pain. Assessment/Plan: 67 yo man history of DVT, chronic R hip and knee pain presents for placement. #Homeless-apparently patient was kicked out of SNF for having dog -visual merchandise manager and SW consult obtained, they are trying to look for new SNF placement at this time -follow-up with them on this #R hip postoperative pain-slowly improving - Percocet, ibuprofen. - Continue inpatient PT #R popliteal DVT - Cont eliqius #Depression/Anxiety- Patient on Prozac and Ativan previously. Appreciate psychi atry evaluation. -Continue BuSpar and Prozac medications. Also Ativan as needed. Dispo: to SNF when bed found, cleared for d/c there Exam/Review of Systems Exam Vitals Vital Signs Date Temp Pulse Resp B/P (MAP) Pulse Ox O2 O2 Flow FiO2 Time Delivery Rate 07/23/18 98.0 64 18 126/60 93 Room Air 07:18 (82) Intake and Output 07/22/18 07/22/18 07/23/18 1515:00 23:00 07:00 IntakeIntake Total 440 ml 380 ml OutputOutput Total 300 ml 700 ml BalanceBalance 140 ml -320 ml Medications Medication Current Medications IV Flush (NS 3 ml) 3 ml PER PROTOCOL IV ; Start 07/16/18 at 17:30 Ondansetron HCl (Zofran Inj) 4 mg Q6H PRN IV NAUSEA/VOMITING; Start 07/16/18 at 17:30 Acetaminophen (Tylenol Tab) 650 mg Q6H PRN PO .PAIN 1-3 OR TEMP; Start 07/16/18 at 17:30 Oxycodone/ Acetaminophen (Percocet (5/ 325)) 1 tab Q6H PRN PO .MOD PAIN 4-6 Last administered on 07/23/18 08:36; Admin Dose 1 TAB; Start 07/16/18 at 17:30 Apixaban (Eliquis) 5 mg BID PO Last administered on 07/23/18 08:36; Admin Dose 5 MG; Start 07/16/18 at 21:00 Lorazepam (Ativan) 1 mg Q6H PRN IV AGITATION/ANXIETY Last administered on 07/18/18 07:35; Admin Dose 1 MG; Start 07/17/18 at 16:00 Lorazepam (Ativan) 1 mg Q6H PRN PO ANXIETY Last administered on 07/23/18 04:33; Admin Dose 1 MG; Start 07/18/18 at 12:30 Buspirone HCl (Buspar) 5 mg BID PO Last administered on 07/23/18 08:36; Admin Dose 5 MG; Start 07/19/18 at 21:00 Fluoxetine HCl (Prozac) 20 mg DAILY PO Last administered on 07/23/18 08:36; Admin Dose 20 MG; Start 07/20/18 at 09:00 HANS COTA July 23, 2018 12:53
[2018-07-23 14:00] VITALS: BP 112/70; PULSE 62; RESP 15
[2018-07-23] MEDS: LORAZEPAM 2 MG INJ IV PRN ×2 (14:31→21:11)
[2018-07-23 20:23] VITALS: BP 113/63; PULSE 76; RESP 18
[2018-07-24 02:03] VITALS: BP 122/72; PULSE 68; RESP 18
[2018-07-24] MEDS: OXYCODONE/ACETAMINOPHEN (5/325) TAB PO PRN ×2 (04:18→11:00)
[2018-07-24] MEDS: LORAZEPAM 1 MG TAB PO PRN ×4 (04:18→23:05)
[2018-07-24 08:00] VITALS: BP 112/59; PULSE 59; RESP 18
[2018-07-24] MEDS: BUSPIRONE 5 MG TAB PO SCH ×2 (09:34→21:26)
[2018-07-24] MEDS: APIXABAN 5 MG TABLET PO SCH ×2 (09:34→21:27)
[2018-07-24] MEDS: FLUOXETINE 20 MG CAP PO SCH (09:34)
[2018-07-24 14:00] VITALS: BP 116/63; PULSE 64; RESP 18
--- NOTE | 2018-07-24 15:23 | PN ---
Date/Time of Note Date/Time of Note DATE: 07/24/18 TIME: 15:20 Assessment/Plan VTE Prophylaxis Risk score (from Nsg)>0 risk: 7 SCD applied (from Nsg): Yes Pharmacological prophylaxis: NA/contraindicated Pharm contraindication: low risk/ambulating Lines/Catheters IV Catheter Type (from Nrsg): Peripheral IV Urinary Cath still in place: No Assessment/Plan Assessment/Plan 67 yo man history of DVT, chronic R hip and knee pain presents for placement. #Homeless-apparently patient was kicked out of SNF for having dog -mobility architect manager and SW consult obtained, they are trying to look for new SNF placement at this time -follow-up with them on this #R hip postoperative pain-slowly improving - naproxen prn - Continue inpatient PT #R popliteal DVT - Cont eliqius #Depression/Anxiety- Patient on Prozac and Ativan previously. Appreciate psychiatry evaluation. -Continue BuSpar and Prozac medications. Also Ativan as needed. Dispo: to SNF when bed found, cleared for d/c there Subjective 24 Hr Interval Summary Free Text/Dictation No acute overnight events. Patient agreeable to stop percocet. Exam/Review of Systems Exam Vitals Vital Signs Date Temp Pulse Resp B/P (MAP) Pulse Ox O2 O2 Flow FiO2 Time Delivery Rate 07/24/18 97.9 64 18 116/63 92 14:00 (80) 07/23/18 Room Air 14:00 Intake and Output 07/23/18 07/23/18 07/24/18 1515:00 23:00 07:00 IntakeIntake Total 500 ml OutputOutput Total 400 ml BalanceBalance 100 ml Exam Gen: Lying in bed. HEENT: PERRL, no icterus Neck: Supple Card: Regular rate and rhythm, no murmurs Pulm: Clear to auscultation bilaterally Back: No CVA tenderness, no midline tenderness, no surgical scars. Abd: Soft, nontender, nondistended. Ext: R hip and knee well-healed surgical scars. R hip has greatly reduced range of motion limited by pain. Medications Medication Current Medications IV Flush (NS 3 ml) 3 ml PER PROTOCOL IV ; Start 07/16/18 at 17:30 Ondansetron HCl (Zofran Inj) 4 mg Q6H PRN IV NAUSEA/VOMITING; Start 07/16/18 at 17:30 Acetaminophen (Tylenol Tab) 650 mg Q6H PRN PO .PAIN 1-3 OR TEMP; Start 07/16/18 at 17:30 Oxycodone/ Acetaminophen (Percocet (5/ 325)) 1 tab Q6H PRN PO .MOD PAIN 4-6 Last administered on 07/24/18 11:00; Admin Dose 1 TAB; Start 07/16/18 at 17:30 Apixaban (Eliquis) 5 mg BID PO Last administered on 07/24/18 09:34; Admin Dose 5 MG; Start 07/16/18 at 21:00 Lorazepam (Ativan) 1 mg Q6H PRN IV AGITATION/ANXIETY Last administered on 07/23/18 21:11; Admin Dose 1 MG; Start 07/17/18 at 16:00 Lorazepam (Ativan) 1 mg Q6H PRN PO ANXIETY Last administered on 07/24/18 11:00; Admin Dose 1 MG; Start 07/18/18 at 12:30 Buspirone HCl (Buspar) 5 mg BID PO Last administered on 07/24/18 09:34; Admin Dose 5 MG; Start 07/19/18 at 21:00 Fluoxetine HCl (Prozac) 20 mg DAILY PO Last administered on 07/24/18 09:34; Admin Dose 20 MG; Start 07/20/18 at 09:00 ZINA SAUL MD July 24, 2018 15:23
[2018-07-24] MEDS ORDERED: NAPROXEN 500 MG TAB PO PRN (15:30)
[2018-07-24] MEDS: NAPROXEN 250 MG TAB PO PRN (18:05)
[2018-07-24 20:18] VITALS: BP 118/62; PULSE 61; RESP 18
[2018-07-25 02:00] VITALS: BP 126/76; PULSE 65; RESP 18
[2018-07-25] MEDS: NAPROXEN 250 MG TAB PO PRN ×3 (03:05→20:44)
[2018-07-25] MEDS: LORAZEPAM 1 MG TAB PO PRN ×3 (05:07→17:58)
[2018-07-25 07:20] VITALS: BP 111/54; PULSE 58; RESP 18
[2018-07-25] MEDS: FLUOXETINE 20 MG CAP PO SCH (08:59)
[2018-07-25] MEDS: BUSPIRONE 5 MG TAB PO SCH ×2 (08:59→20:44)
[2018-07-25] MEDS: APIXABAN 5 MG TABLET PO SCH ×2 (08:59→20:44)
[2018-07-25 13:40] VITALS: BP 123/75; PULSE 82; RESP 16
--- NOTE | 2018-07-25 18:12 | PN ---
Date/Time of Note Date/Time of Note DATE: 07/25/18 TIME: 18:12 Assessment/Plan VTE Prophylaxis Risk score (from Nsg)>0 risk: 5 SCD applied (from Nsg): No SCD contraindicated: low risk/ambulating Pharmacological prophylaxis: NA/contraindicated Pharm contraindication: low risk/ambulating Lines/Catheters IV Catheter Type (from Nrsg): Peripheral IV Urinary Cath still in place: No Assessment/Plan Assessment/Plan 67 yo man history of DVT, chronic R hip and knee pain presents for placement. #Homeless-apparently patient was kicked out of SNF for having dog -online education manager and SW consult obtained, they are trying to look for new SNF placement at this time -follow-up with them on this #R hip postoperative pain-slowly improving - naproxen prn - Continue inpatient PT #R popliteal DVT - Cont eliqius #Depression/Anxiety- Patient on Prozac and Ativan previously. Appreciate psychiatry evaluation. -Continue BuSpar and Prozac medications. Also Ativan as needed. Dispo: to SNF when bed found, cleared for d/c there Subjective 24 Hr Interval Summary Free Text/Dictation No acute overnight events. Patient is unhappy about his percocet being stopped. Exam/Review of Systems Exam Vitals Vital Signs Date Temp Pulse Resp B/P (MAP) Pulse Ox O2 O2 Flow FiO2 Time Delivery Rate 07/25/18 98.0 82 16 123/75 91 Room Air 13:40 (91) Intake and Output 07/24/18 07/24/18 07/25/18 1515:00 23:00 07:00 IntakeIntake Total 680 ml 480 ml OutputOutput Total 1260 ml 1550 ml BalanceBalance -580 ml 480 ml -1550 ml Exam Gen: Lying in bed. HEENT: PERRL, no icterus Neck: Supple Card: Regular rate and rhythm, no murmurs Pulm: Clear to auscultation bilaterally Back: No CVA tenderness, no midline tenderness, no surgical scars. Abd: Soft, nontender, nondistended. Ext: R hip and knee well-healed surgical scars. R hip has greatly reduced range of motion limited by pain. Medications Medication Current Medications IV Flush (NS 3 ml) 3 ml PER PROTOCOL IV ; Start 07/16/18 at 17:30 Ondansetron HCl (Zofran Inj) 4 mg Q6H PRN IV NAUSEA/VOMITING; Start 07/16/18 at 17:30 Acetaminophen (Tylenol Tab) 650 mg Q6H PRN PO .PAIN 1-3 OR TEMP; Start 07/16/18 at 17:30 Apixaban (Eliquis) 5 mg BID PO Last administered on 07/25/18 08:59; Admin Dose 5 MG; Start 07/16/18 at 21:00 Lorazepam (Ativan) 1 mg Q6H PRN PO ANXIETY Last administered on 07/25/18at 17:58; Admin Dose 1 MG; Start 07/18/18 at 12:30 Buspirone HCl (Buspar) 5 mg BID PO Last administered on 07/25/18 08:59; Admin Dose 5 MG; Start 07/19/18 at 21:00 Fluoxetine HCl (Prozac) 20 mg DAILY PO Last administered on 07/25/18 08:59; Admin Dose 20 MG; Start 07/20/18 at 09:00 Naproxen (Naprosyn) 500 mg Q8H PRN PO hip pain Last administered on 07/25/18at 12:48; Admin Dose 500 MG; Start 07/24/18 at 18:00 ZINA SAUL MD July 25, 2018 18:12
[2018-07-25 19:39] VITALS: BP 148/74; PULSE 71; RESP 17
[2018-07-26] MEDS: LORAZEPAM 1 MG TAB PO PRN ×4 (00:08→20:04)
[2018-07-26] MEDS ORDERED: traZODone 50 MG TAB PO ONE (02:00)
[2018-07-26 02:35] VITALS: BP 137/69; PULSE 69; RESP 17
[2018-07-26] MEDS: NAPROXEN 250 MG TAB PO PRN ×3 (07:16→23:33)
[2018-07-26] MEDS: APIXABAN 5 MG TABLET PO SCH ×2 (09:09→20:59)
[2018-07-26] MEDS: BUSPIRONE 5 MG TAB PO SCH ×2 (09:09→20:59)
[2018-07-26] MEDS: FLUOXETINE 20 MG CAP PO SCH (09:09)
[2018-07-26] MEDS: ACETAMINOPHEN 325 MG TAB PO PRN (11:33)
--- NOTE | 2018-07-26 14:35 | PN ---
Date/Time of Note Date/Time of Note DATE: 07/26/18 TIME: 14:33 Assessment/Plan VTE Prophylaxis Risk score (from Nsg)>0 risk: 5 SCD applied (from Nsg): Yes Pharmacological prophylaxis: NA/contraindicated Pharm contraindication: low risk/ambulating Lines/Catheters IV Catheter Type (from Nrsg): Saline Lock Urinary Cath still in place: No Assessment/Plan Assessment/Plan 67 yo man history of DVT, chronic R hip and knee pain presents for placement. #Homeless-apparently patient was kicked out of SNF for having dog -application release manager and SW consult obtained, they are trying to look for new SNF placement at this time -follow-up with them on this #R hip postoperative pain-slowly improving - naproxen prn - Continue inpatient PT - Previously on percocet, but opioids are suboptimal long-term therapy for arthritis so this was stopped. #R popliteal DVT - Cont eliqius #Depression/Anxiety- Patient on Prozac and Ativan previously. Appreciate psychiatry evaluation. -Continue BuSpar and Prozac medications. Also Ativan as needed. Dispo: to SNF when bed found, cleared for d/c there Subjective 24 Hr Interval Summary Free Text/Dictation No acute overnight events. Patient reports that he walked around the unit yesterday. But PT notes say he declined treatment. Exam/Review of Systems Exam Vitals Vital Signs Date Temp Pulse Resp B/P (MAP) Pulse Ox O2 O2 Flow FiO2 Time Delivery Rate 07/26/18 97.9 69 17 137/69 97 02:35 (91) 07/25/18 Room Air 13:40 Intake and Output 07/25/18 07/25/18 07/26/18 1515:00 23:00 07:00 IntakeIntake Total 600 ml 800 ml OutputOutput Total 850 ml 1500 ml BalanceBalance -250 ml -700 ml Exam Gen: Lying in bed. HEENT: PERRL, no icterus Neck: Supple Card: Regular rate and rhythm, no murmurs Pulm: Clear to auscultation bilaterally Back: No CVA tenderness, no midline tenderness, no surgical scars. Abd: Soft, nontender, nondistended. Ext: R hip and knee well-healed surgical scars. R hip has greatly reduced range of motion limited by pain. Medications Medication Current Medications IV Flush (NS 3 ml) 3 ml PER PROTOCOL IV ; Start 07/16/18 at 17:30 Ondansetron HCl (Zofran Inj) 4 mg Q6H PRN IV NAUSEA/VOMITING; Start 07/16/18 at 17:30 Acetaminophen (Tylenol Tab) 650 mg Q6H PRN PO .PAIN 1-3 OR TEMP Last administered on 07/26/18 11:33; Admin Dose 650 MG; Start 07/16/18 at 17:30 Apixaban (Eliquis) 5 mg BID PO Last administered on 07/26/18 09:09; Admin Dose 5 MG; Start 07/16/18 at 21:00 Lorazepam (Ativan) 1 mg Q6H PRN PO ANXIETY Last administered on 07/26/18 14:01; Admin Dose 1 MG; Start 07/18/18 at 12:30 Buspirone HCl (Buspar) 5 mg BID PO Last administered on 07/26/18 09:09; Admin Dose 5 MG; Start 07/19/18 at 21:00 Fluoxetine HCl (Prozac) 20 mg DAILY PO Last administered on 07/26/18 09:09; Admin Dose 20 MG; Start 07/20/18 at 09:00 Naproxen (Naprosyn) 500 mg Q8H PRN PO hip pain Last administered on 07/26/18 07:16; Admin Dose 500 MG; Start 07/24/18 at 18:00 ZINA SAUL MD July 26, 2018 14:35
[2018-07-26] MEDS ORDERED: DIPHENHYDRAMINE 25 MG CAP PO PRN (15:00)
[2018-07-26 19:41] VITALS: BP 107/67; PULSE 86; RESP 18
[2018-07-27 02:00] VITALS: BP 125/81; PULSE 79; RESP 18
[2018-07-27] MEDS: LORAZEPAM 1 MG TAB PO PRN ×3 (02:04→14:55)
[2018-07-27] MEDS: ACETAMINOPHEN 325 MG TAB PO PRN (05:29)
[2018-07-27] MEDS: NAPROXEN 250 MG TAB PO PRN ×2 (07:58→15:59)
[2018-07-27 08:00] VITALS: BP 151/76; PULSE 63; RESP 18
[2018-07-27] MEDS: BUSPIRONE 5 MG TAB PO SCH (08:03)
[2018-07-27] MEDS: FLUOXETINE 20 MG CAP PO SCH (08:03)
[2018-07-27] MEDS: APIXABAN 5 MG TABLET PO SCH (08:04)
[2018-07-27] MEDS ORDERED: LORA1TAB PO (11:13)
[2018-07-27] MEDS ORDERED: FLUO20CA22 PO (11:13)
[2018-07-27] MEDS ORDERED: APIX5TAB PO (11:13)
[2018-07-27 14:00] VITALS: BP 123/84; PULSE 71; RESP 18
--- NOTE | 2018-07-27 17:07 | DS ---
Date/Time of Note Date/Time of Note DATE: 07/27/18 TIME: 17:05 Discharge Summary Admission/Discharge Info Admit Date/Time July 20, 2018 at 12:10 Discharge Date/Time July 27, 2018 Discharge Diagnosis Homelessness Patient Condition: Fair Hx of Present Illness Mr. Nogueira is a 67 yo man with chronic R hip and knee pain related to surgery who presents for placement after losing his SNF. The patient had a right femur ORIF about 7-8 weeks ago and a more remote right total knee arthroplasty and was in a rehab facility. Unfortunately, the patient had a pet dog that needed to be attended to and he was unable to keep the dog at the facility. He subsequently left AGAINST MEDICAL ADVICE from the facility. He was able to get his friend to watch the dog, and came to the emergency department Tuesday for placement. Unfortunately, the patient refused any transfer to a rehab facility that would not allow him to have a dog. The patient continues to endorse right hip and knee pain. This is chronic and unchanged since his surgery. The patient denies feeling sick recently. The patient denies fever or chills. The patient has had no headache or vision changes. The patient does not endorse neck or back pain. The patient denies lightheadedness or dizziness. The patient has had no chest pain or trouble breathing. The patient denies nausea or vo miting. The patient denies abdominal pain. The patient denies changes to bowel movements or urination. The patient has had no focal deficits. The patient has had no weakness or numbness or tingling to the face or extremities. MEDICATIONS Arabella Atdionne Spaulding Percocet Hospital Course The patient was admitted to med/surg. He was evaluated by physical therapy and was able to ambulate well independently. Case management was consulted for placement. As the hospitalist I was concerned about the patient being on both a benzodiazepine and an opiate, especially at his age. I discontinued his percocet while inpatient, as this is suboptimal therapy for arthritis pain. Replaced it with naproxen. The patient will be discharged to an apartment owned by [facility]. Home Meds Active Scripts Lorazepam* (Lorazepam*) 1 Mg Tablet, 1 MG PO Q6H PRN for ANXIETY, #30 TAB Prov:ZINA SAUL MD 07/27/18 Fluoxetine Hcl* (Fluoxetine Hcl*) 20 Mg Capsule, 20 MG PO DAILY, #60 CAP 1 Refill Prov:ZINA SAUL MD 07/27/18 Apixaban* (Eliquis*) 5 Mg Tablet, 5 MG PO BID, #60 TAB 1 Refill Prov:ZINA SAUL MD 07/27/18 Primary Care Provider Not On Staff Doctor Time spent on discharge: > 30 minutes ZINA SAUL MD July 27, 2018 17:07
== END 2018-07-27 17:50 | disposition home or self-care (01) | DRG 556 ==
LOC: E/R 10:21 → 5EC 16:50 → UNDOADMOB 16:50 → 5EC 07-20 12:05 → OBSVTOIN 07-20 12:10 → 5EC 07-20 17:00
PROVIDERS: ADMIT Internal Medicine; ATTEND Internal Medicine
DX: M25.551 Pain in right hip (principal); I82.431 Acute embolism and thrombosis of right popliteal vein; F33.2 Major depressive disorder, recurrent severe without psychotic features; G89.18 Other acute postprocedural pain; Z59.0 Homelessness; Z86.718 Personal history of other venous thrombosis and embolism; Z79.01 Long term (current) use of anticoagulants; M25.561 Pain in right knee; Z96.651 Presence of right artificial knee joint; Z87.891 Personal history of nicotine dependence; R19.7 Diarrhea, unspecified; F41.8 Other specified anxiety disorders
CPT/HCPCS: 70450; 73510; 80048; 80053; 83036; 83735; 84100; 84443; 85025; 97110; 97116; 97162; 97167; 97530; 97535; 99217; 99283; G0378; J1630; J2060

== ENCOUNTER 2018-08-21 13:55 | Emergency (ER) | payer MEDICARE, OTHER ==
[~2018-08-21] VITALS: Ht 190.5 cm; Wt 105.0 kg
[~2018-08-21 13:55] MED LIST: APIX5TAB PO; FLUO20CA22 PO; LORA1TAB PO
[2018-08-21 14:07] VITALS: Ht 190.5 cm; Wt 105.0 kg
--- NOTE | 2018-08-21 16:05 | ERD ---
ER Documentation Chief Complaint Chief Complaint fell hit head tuesday, difficulty walking since hip surgery 8wks ago HPI This is a 67-year-old man complaining of mechanical fall about 3 days ago, he states he fell backwards and struck the back of his scalp. He status post hip surgery about 10 weeks ago. He denies hip or knee pain, no chest pain or shortness of breath, no difficulty ambulating. He uses apixaban daily ROS All systems reviewed and are negative except as per history of present illness. Medications Home Meds Active Scripts Naproxen* (Naprosyn*) 500 Mg Tablet, 500 MG PO BID PRN for PAIN AND/OR INFLAMMATION, #30 TAB Prov:ZANA GARZON MD 08/21/18 Apixaban* (Eliquis*) 5 Mg Tablet, 5 MG PO BID, #60 TAB 1 Refill Prov:ZINA SAUL MD 07/27/18 Reported Medications Fluoxetine Hcl* (Fluoxetine Hcl*) 20 Mg Capsule, 60 MG PO QAM, CAP 08/21/18 Lorazepam* (Lorazepam*) 1 Mg Tablet, 1 MG PO Q8 PRN for ANXIETY, #60 TAB 08/21/18 Folic Acid* (Folic Acid*) 1 Mg Tablet, 1 MG PO DAILY, TAB 08/21/18 Ferrous Sulfate* (Ferrous Sulfate*) 325 Mg Tabec, 325 MG PO DAILY, TAB 08/21/18 Trazodone Hcl* (Trazodone Hcl*) 300 Mg Tablet, 300 MG PO QHS, #30 TAB 08/21/18 Discontinued Scripts Lorazepam* (Lorazepam*) 1 Mg Tablet, 1 MG PO Q6H PRN for ANXIETY, #30 TAB Prov:ZINA SAUL MD 07/27/18 Fluoxetine Hcl* (Fluoxetine Hcl*) 20 Mg Capsule, 20 MG PO DAILY, #60 CAP 1 Refill Prov:ZINA SAUL MD 07/27/18 Allergies Allergies: Coded Allergies: No Known Allergy (Unverified , 08/21/18) PMhx/Soc Status post right hip ORIF 10 weeks ago, history of right DVT currently on apixaban, chronic neck and back pain History of Surgery: Yes (s/p laminectomy, right knee and right hip) Anesthesia Reaction: No Hx Neurological Disorder: No Hx Respiratory Disorders: No Hx Cardiac Disorders: No Hx Psychiatric Problems: Yes Hx Miscellaneous Medical Probl: Yes (R femur fx 8 wks ago,R knee surg eries,depression, anxiety) Hx Alcohol Use: No Hx Substance Use: No Hx Tobacco Use: Yes (1 pack/day. last smoked was 10 years ago) FmHx Family History: No diabetes Physical Exam Vitals Vital Signs Date Temp Pulse Resp B/P (MAP) Pulse Ox O2 O2 Flow FiO2 Time Delivery Rate 08/21/18 65 18 134/70 96 Room Air 19:07 (91) 08/21/18 60 18 125/91 96 Room Air 18:00 (102) 08/21/18 55 18 112/101 96 Room Air 17:00 (105) 08/21/18 98.6 71 18 132/73 96 14:07 (92) Physical Exam Const: No acute distress, mild discomfort HEENT: Normocephalic atraumatic, no hematomas, no cervical spine deformity or tenderness noted Resp: Clear to auscultation bilaterally Cardio: Regular rate and rhythm, no murmurs Skin: No petechiae or rashes Back: No midline or flank tenderness Ext: No cyanosis, or edema, calves symmetrical Neur: Awake and alert x3, no focal deficits or facial asymmetry Psych: Normal Mood and Affect Result Diagram: 08/21/18 1628 08/21/18 1628 Results 24 hrs Laboratory Tests Test 08/21/18 16:28 White Blood Count 6.0 10^3/ul Red Blood Count 4.88 10^6/ul Hemoglobin 13.4 g/dl Hematocrit 41.2 % Mean Corpuscular Volume 84.4 fl Mean Corpuscular Hemoglobin 27.5 pg Mean Corpuscular Hemoglobin Concent 32.5 g/dl Red Cell Distribution Width 15.0 % Platelet Count 186 10^3/UL Mean Platelet Volume 9.0 fl Immature Granulocytes % 0.200 % Neutrophils % 64.7 % Lymphocytes % 19.1 % Monocytes % 14.0 % Eosinophils % 1.3 % Basophils % 0.7 % Nucleated Red Blood Cells % 0.0 /100WBC Immature Granulocytes # 0.010 10^3/ul Neutrophils # 3.9 10^3/ul Lymphocytes # 1.2 10^3/ul Monocytes # 0.8 10^3/ul Eosinophils # 0.1 10^3/ul Basophils # 0.0 10^3/ul Nucleated Red Blood Cells # 0.0 10^3/ul Sodium Level 141 mmol/L Potassium Level 3.7 mmol/L Chloride Level 104 mmol/L Carbon Dioxide Level 29 mmol/L Anion Gap 8 Blood Urea Nitrogen 11 mg/dl Creatinine 0.85 mg/dl Est Glomerular Filtrat Rate mL/min > 60 mL/min Glucose Level 86 mg/dl Calcium Level 9.3 mg/dl Current Medications Medications Dose Sig/Fili Start Time Status Last (Trade) Ordered Route PRN Stop Time Admin Dose Reason Admin Sodium 500 ml @ Q1H STAT 08/21/18 DC 08/21/18 Chloride 500 mls/hr IV 16:13 17:08 08/21/18 17:12 Ketorolac 15 mg ONCE STAT 08/21/18 DC 08/21/18 Tromethamine IV 16:13 17:09 (Toradol) 08/21/18 16:15 Oxycodone/ 1 tab ONCE ONCE 08/21/18 DC 08/21/18 Acetaminophen PO 16:30 17:09 (Percocet 08/21/18 16:31 (5/ 325)) Procedures/MDM IV line was established 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 Patient was afebrile I administered 500 cc normal saline IV, Toradol 15 mg IV, Percocet 1 tablet p.o. IMPRESSION: No evidence of acute fracture of the cervical spine. Moderate to severe multilevel spondylosis with moderate central canal stenosis at C5-C6 and C6-C7, and multilevel severe foraminal stenosis, as above. Straightening of the normal lordosis with minimal anterolisthesis at C3-C4, likely chronic and acquired. Other degenerative changes, as above. CT scan of the head was negative for acute bleed mass or shift CBC and electrolytes were normal. Patient feels much better at this time, and vital signs are normal, symptoms have improved. I did give strict instructions to return to the ED if symptoms continue or worsen, patient will otherwise follow-up with primary care physician. Patient understood instructions and agreed to plan. Disclaimer: Inadvertent spelling and grammatical errors are likely due to EHR/dictation software use and do not reflect on the overall quality of patient care. Also, please note that the electronic time recorded on this note does not necessarily reflect the actual time of the patient encounter. Departure Diagnosis: Primary Impression: Degenerative arthritis of cervical spine Spinal osteoarthritis complication: unspecified spinal osteoarthritis Qualified Codes: M47.812 - Spondylosis without myelopathy or radiculopathy, cervical region Additional Impression: Scalp contusion Encounter type: initial encounter Qualified Codes: S00.03XA - Contusion of scalp, initial encounter Condition: Good ZANA GARZON MD Aug 21, 2018 16:05
[2018-08-21] MEDS ORDERED: SOD CHLORIDE 0.9% 500 ML IV STA (16:13)
[2018-08-21] MEDS ORDERED: KETOROLAC 15 MG INJ IV STA (16:13)
[2018-08-21] MEDS ORDERED: OXYCODONE/ACETAMINOPHEN (5/325) TAB PO ONE (16:30)
[2018-08-21] MEDS ORDERED: TRAZ300T15 PO (17:25)
[2018-08-21] MEDS ORDERED: FER325 PO (17:26)
[2018-08-21] MEDS ORDERED: FOLI-49 PO (17:26)
[2018-08-21] MEDS ORDERED: LORA1TAB PO (17:26)
[2018-08-21] MEDS ORDERED: FLUO20CA22 PO (17:27)
[2018-08-21] MEDS ORDERED: NAPR-985 PO (17:48)
[2018-08-21 19:07] VITALS: BP 134/70; PULSE 65; RESP 18
== END 2018-08-21 19:10 | disposition home or self-care (01) ==
LOC: E/R 13:55
DX: S00.03XA Contusion of scalp, initial encounter (principal); F17.210 Nicotine dependence, cigarettes, uncomplicated; M47.812 Spondylosis without myelopathy or radiculopathy, cervical region; W01.10XA Fall on same level from slipping, tripping and stumbling with subsequent striking against unspecified object, initial encounter; Y92.9 Unspecified place or not applicable; Z79.01 Long term (current) use of anticoagulants
CPT/HCPCS: 36415; 70450; 72125; 80048; 85025; 96374; 99285; J1885; J7040